=== PATIENT | female | born 1990 | race Caucasian/White ===

== ENCOUNTER → 2020-12-10 | Outpatient (CLI) | payer OTHER ==
[~2020-12-10] MED LIST: ENTYVIO300 MG IV; HYDROCODON-ACE1 EAC7 PO; HYSINGLA ER20 MG PO; PREDNISONE 10 M10 MG PO; PROZAC20 M1 PO
== END ==
LOC: M.PC 10:45
PROVIDERS: ATTEND Anesthesiology Pain Medicine
DX: K51.90 Ulcerative colitis, unspecified, without complications (principal); G89.29 Other chronic pain

== ENCOUNTER → 2021-01-07 | Outpatient (CLI) | payer OTHER ==
[~2021-01-07] MED LIST changes: +HYDROCODONE-AP1 EA11 PO; +MS CONTIN15 MG PO
== END ==
LOC: M.PC 08:59
PROVIDERS: ATTEND Anesthesiology Pain Medicine
DX: G89.29 Other chronic pain (principal); K51.80 Other ulcerative colitis without complications

== ENCOUNTER → 2021-02-04 | Outpatient (CLI) | payer OTHER ==
[~2021-02-04] MED LIST changes: +AMITRIPTYLINE H25 M3 PO; +BIOTIN1 MG PO; +IRON325 M1 PO; +NORCO 10-325 T1 EACH PO; +PAMELOR10 MG PO; +SUPER THERAVIT1 EACH PO; +VITAMIN D31250 MC1 PO
== END ==
LOC: M.PC 08:14
PROVIDERS: ATTEND Anesthesiology Pain Medicine
DX: K51.80 Other ulcerative colitis without complications (principal); G89.29 Other chronic pain; Z79.899 Other long term (current) drug therapy

== ENCOUNTER → 2021-03-04 | Outpatient (CLI) | payer OTHER | LOC: M.PC 09:11 | PROVIDERS: ATTEND Anesthesiology Pain Medicine | DX: K51.90 Ulcerative colitis, unspecified, without complications (principal); G89.29 Other chronic pain; R10.32 Left lower quadrant pain; Z79.899 Other long term (current) drug therapy ==

== ENCOUNTER → 2021-04-01 | Outpatient (CLI) | payer OTHER ==
[~2021-04-01] MED LIST changes: +STELARA90 MG/1 ML SUBQ
== END ==
LOC: M.PC 10:16
PROVIDERS: ATTEND Anesthesiology Pain Medicine
DX: K51.90 Ulcerative colitis, unspecified, without complications (principal); G89.29 Other chronic pain; R10.32 Left lower quadrant pain

== ENCOUNTER → 2021-04-29 | Outpatient (CLI) | payer OTHER | LOC: M.PC 10:30 | PROVIDERS: ATTEND Anesthesiology Pain Medicine | DX: G89.29 Other chronic pain (principal); R10.12 Left upper quadrant pain; K51.80 Other ulcerative colitis without complications; Z79.899 Other long term (current) drug therapy ==

== ENCOUNTER → 2021-05-27 | Outpatient (CLI) | payer OTHER ==
[~2021-05-27] MED LIST changes: +ALLEGRA ALLERG180 MG PO; +ZOFRAN ODT4 MG PO
== END ==
LOC: M.PC 10:17
PROVIDERS: ATTEND Anesthesiology Pain Medicine
DX: G89.29 Other chronic pain (principal); K51.90 Ulcerative colitis, unspecified, without complications; R10.32 Left lower quadrant pain; Z79.891 Long term (current) use of opiate analgesic; Z79.899 Other long term (current) drug therapy; Z68.32 Body mass index [BMI] 32.0-32.9, adult; N20.0 Calculus of kidney